=== PATIENT | male | born 1940 | race Caucasian/White ===

== ENCOUNTER 2019-10-11 05:57 | Outpatient (RCR) | payer MEDICARE, OTHER, SELFPAY | END 2019-10-24 00:01 | LOC: ONCRAD 05:57 | PROVIDERS: Family Provider Internal Medicine; PCP Radiology Radiation Oncology; Visit Provider Radiology Radiation Oncology | DX: Z08 Encounter for follow-up examination after completed treatment for malignant neoplasm (principal); C34.12 Malignant neoplasm of upper lobe, left bronchus or lung; F40.240 Claustrophobia; J43.9 Emphysema, unspecified; I25.10 Atherosclerotic heart disease of native coronary artery without angina pectoris; Q61.02 Congenital multiple renal cysts; N20.0 Calculus of kidney; N40.0 Benign prostatic hyperplasia without lower urinary tract symptoms; K57.30 Diverticulosis of large intestine without perforation or abscess without bleeding; K40.20 Bilateral inguinal hernia, without obstruction or gangrene, not specified as recurrent; Z79.82 Long term (current) use of aspirin; Z92.3 Personal history of irradiation | CPT/HCPCS: 71260; 74177; 82565; 84520; 99215; Q9967 ==

== ENCOUNTER 2019-11-30 12:27 | Outpatient (CLI) | payer MEDICARE, OTHER, SELFPAY ==
--- NOTE | 2019-11-30 12:44 | CT_ITS ---
WS: [id number] CT scan of the abdomen and pelvis with Oral and without IV contrast. Additional two-dimensional coron al and sagittal reconstruction was performed. 11/30/2019 Clinical Data: H/O DIVERTICULITIS Comparison: CT abdomen and pelvis, 10/09/2019. DLP: 1056.[address] scans at [facility] use at least one of these dose optimization techniques: automat ed exposure control; mA and/or kV adjustment per patient size (includes targeted exams where dose is matched to clinical indication); or iterative reconstruction. Findings: The lower lungs show no nodules, masses or effusions. There is a moderate hiatal hernia. The liver, adrenal glands and pancreas are normal. The gallbladder has several small stones within. There is a cyst at the anterior aspect of the spleen unchanged. The kidneys show bilateral cysts and nonobstructing calculi. The largest right renal calculus is 0.77 cm centimeters and the left is 0.94 centimeters. The abdominal aorta is normal in size with calcification in the wall.. No appendicitis or diverticulitis is seen. There are numerous diverticula of the descending and sigmo id colons. Oral contrast is in the stomach and small bowel and there is no bowel dilatation. No absce ss, adenopathy, ascites, mass, obstruction or free air is seen. There is a small fluid collection ant erior to the rectum but there is no air within.. There is a slight decrease in size There are bilater al fat-containing inguinal hernias. The prostate is enlarged with central calcification. The bladder is unremarkable. The lumbar vertebral bodies show an old compression fracture of L3 and d egenerative disc narrowing at L5-S1.. CT/CT abdomen pelvis wo con [id number] Impression: 1. Cholelithiasis, splenic cyst, multiple renal calculi and renal cysts. 2. Small anterior rectal fluid collection diminished slightly in size. 3. No change in bilateral fat-containing inguinal hernias. 4. No essential change from previous CT abdomen and pelvis.
[2019-11-30] MEDS: iohexol 300 mg/mL 50 mL Btl PO (14:02)
== END 2019-11-30 12:28 | disposition home or self-care (01) ==
LOC: RADWPI 12:34
PROVIDERS: Family Provider Internal Medicine; PCP Internal Medicine; Referring Provider Radiology Radiation Oncology; Visit Provider Surgery
DX: K57.92 Diverticulitis of intestine, part unspecified, without perforation or abscess without bleeding (principal); K80.20 Calculus of gallbladder without cholecystitis without obstruction; D73.4 Cyst of spleen; N20.0 Calculus of kidney; N28.1 Cyst of kidney, acquired
CPT/HCPCS: 74176

== ENCOUNTER 2019-12-25 07:59 | Day surgery (SDC) | payer MEDICARE, OTHER, SELFPAY ==
[2019-12-22 10:15] VITALS: BMI 22.4
--- NOTE | 2019-12-22 10:47 | ANES.PREANE2 ---
Pre-Anesthetic Assessment Pre-Anesthetic Assessment: Height/Weight: Height 1.78 m Weight 70.76 kg Preop Diagnosis: Right inguinal hernia Proposed Procedure: Operation Date: 12/25/19 08:00 Proposed Procedures p Laparoscopic Poss Open Inguinal Hernia Repair 73792 K40.90(Right) - Dmitry Maciel MD Social: Packs per day: 1.5 Pack years: 100 Exam: Pre-Anes Outpt Exam: alert, oriented x 3, clear to auscultation bilaterally and regular rate & rhythm Airway: Submandibular: WNL Cervical ROM: Other MP: 2 Dentition: False Pulmonary: Pulmonary: COPD CV/HEM: CV/HEM: Afib Comments: stress test '00 negative 2 blocks/2FOS without angina/mild BACON Metabolic: Metabolic: DM Comments: rx'd 1y, 100-170 Anesthetic Plan: ASA status: 3 Anesthesia: General PFSH Anesthesia PFSH: Social History (Updated 12/22/19 @ 10:02 by Nallely Fox) Smoking and tobacco status: current every day smoker Data Anesthesia Cardiac Studies: No Data to Display
[2019-12-25] VITALS (12 sets, daily range): BP systolic 117–162; BP diastolic 67–98; PULSE 72–112; RESP 18–28; TEMP 36.4–36.9; O2SAT 93–98
[2019-12-25] MEDS: sodium chloride 0.9% 1,000 ML 30 ML IV (08:47)
[2019-12-25 08:55] LABS: Glucose Point of Care 138 mg/dL (70-110)
--- NOTE | 2019-12-25 08:57 | P.ANESUD_ITS ---
Pre-Anesthetic Update Pre-Anesthetic Assessment: Date of Surgery/Procedure: 12/25/19 Preop Danielle gnosis: Right inguinal hernia Proposed Procedure: Operation Date: 12/25/19 09:30 Proposed Procedures p Laparoscopic Poss Open Inguinal Hernia Repair 62240 K40.90(Right) - Dmitry Maciel MD Any changes to Pre-Anesthetic Assessment?: No Last Intake: Intake Last Liquid Date 12/25/19 Last Liquid Time 07:00 Last Solid Date 12/24/19 Last Solid Time 22:00 Labs Last 48hrs: Laboratory Results - last 48 hr 12/25/19 08:52 POC Glucose 138 Vitals: Temperature 98.4 F 12/25/19 08:13 Temperature Source Temporal Artery S can 12/25/19 08:13 Pulse Rate 86 12/25/19 08:13 Pulse Rhythm 12/25/19 08:15 Pulse Strength 3+ Normal 12/25/19 08:15 Respiratory Rate 18 12/25/19 08:13 Blood Pressure 126/79 12/25/19 08:13 Blood Pressure Kanika n 94 12/25/19 08:13 Pulse Oximetry 95 12/25/19 08:13 Oxygen Delivery Me thod 12/25/19 08:15 Exam: Pre-Anes Outpt Exam: alert, oriented x 3, clear to auscultation syed aterally and regular rate & rhythm Other Pertinent Information: Other Pertinent Information: Took prednisone and inhaler this morning, took metoprolol last night Cardiac Studies: No Data to Display
--- NOTE | 2019-12-25 09:00 | ECG_ITS ---
Measurements Intervals [place] Rate: 74 P: WA: 0 QRS: -88 QRSD: 161 T: -10 QT: 417 QTc: 465 ATRIAL FIBRILLATION RIGHT BUNDLE BRANCH BLOCK [120+ ms QRS DURATION, UPRIGHT V1, 40+ ms S IN I/aVL/V4/V5/V6] POSSIBLE ANTERIOR MYOCARDIAL INFARCTION [30 ms Q WAVE IN V3/V4, OR R < 0.2 mV IN V4], OF INDETERMINATE AGE INFERIOR MYOCARDIAL INFARCTION [40+ ms Q WAVE AND/OR ST/T ABNORMALITY IN II/aVF], PROBABLY OLD Compared to ECG 09/18/2019 13:49:05 Ventricular premature complex(es) no longer present Aberrant conduction of supraventricular beat(s) no longer present Myocardial infarct finding still present Electronically Signed On 12-25-2019 20:23:13 DISABILITIES CAREGIVER by Samara White M.D. [id number]
[2019-12-25 09:12] LABS: Basophils % 0.6 %; Eosinophils # 0.2 10^3/uL (0.0-0.8); Eosinophils % 2.4 %; Hematocrit 48.6 % (42.0-52.0); Hemoglobin 16.4 g/dL (11.7-16.6); Lymphocytes % 16.2 %; Mean Corpuscular HGB Conc 33.7 g/dL (30.0-36.0); Mean Corpuscular Hemoglobin 31.2 pg (28.0-34.0); Mean Corpuscular Volume 92.6 fL (80-94); Mean Platelet Volume 10.7 fL (7.4-10.4); Monocytes # 0.7 10^3/uL (0.2-0.9); Monocytes % 11.1 %; Neutrophils # 4.3 10^3/uL (1.8-7.7); Neutrophils % 69.4 %; Nucleated Red Blood Cells % 0 %; Platelet Count 149 10^3/cmm (130-400); Red Blood Count 5.25 10^6/uL (4.1-5.3); Red Cell Distribution Width 13.4 % (12.1-15.1); White Blood Count 6.2 10^3/uL (4.0-10.0)
[2019-12-25 09:31] LABS: Anion Gap 16.9 (5-19); Blood Urea Nitrogen 18 mg/dL (8-23); Carbon Dioxide 22 mmol/L (22-29); Chloride 101 mmol/L (98-107); Glucose 161 mg/dL (65-115); Osmolality Calculated 282 mOsm/kg (285-295); Potassium 3.9 mmol/L (3.5-5.1); Sodium 136 mmol/L (136-145)
--- NOTE | 2019-12-25 09:46 | W.PM.OPSUD ---
Surgery/Procedure H&P Update DATE OF PROCEDURE: December 25, 2019 DATE H&P PERFORMED: 12/15/19 H&P UPDATE INFORMATION: I have reviewed H&P completed within last 30 days, I have examined patient prior to procedure and No changes to prior documentation PREOP DIAGNOSIS: Right inguinal hernia PLANNED PROCEDURE: Operation Date: 12/25/19 09:30 Proposed Procedures p Laparoscopic Poss Open Inguinal Hernia Repair 19982 K40.90(Right) - Dmitry Maciel MD
[2019-12-25] MEDS: ipratropium 0.5 mg/2.5 mL Neb INHALATION (10:08)
--- NOTE | 2019-12-25 11:07 | SUR.OPER ---
1050 - Pt's notified of surgery start.
--- NOTE | 2019-12-25 11:38 | PM.OP ---
Operative Report Date of procedure: December 25, 2019 Pre-op Diagnosis: Right inguinal hernia Post-op Diagnosis: Reducible right inguinal hernia Lipoma of the spermatic cord Procedure Done: Laparoscopic total extraperitoneal repair of right inguinal hernia with surgimax 3D mesh Excision of lipoma of the spermatic cord Pathology: none sent Surgeon: Dmitry Maciel Anesthesia: General Estimated blood loss (mL): 20 Condition: stable Disposition: PACU Procedure: The patient was taken to the operating room. After IV antibiotic was administered, the abdomen was prepped and draped in a sterile manner. Using a 15 blade, a 1.0 cm transverse incision was made infraumbilically on the right side. Subcutaneous tissue was divided using electrocautery and the anterior rectus sheath divided using an 11 blade. The rectus muscle was retracted laterally and the extraperitoneal space identified. A 11 mm port was placed and 12 mm of pneumoperitoneum was created. A 10 mm 30? scope was introduced and the retrorectus space was opened using the camera up to the pubic symphysis and 5 mm ports were placed in the midline, one 2-fingerbreadths above the pubic symphysis and the other midway between these two ports under direct visualization. Blunt dissection was carried out to open up the tissue in the midline and to the pubic symphysis, which was identified. The dissection was then carried laterally where the iliopubic tract was identified. There was no femoral, obturator or direct hernia noted. The inferior epigastric artery was identified and dissection was carried posterior to it and laterally, the space was opened up to the level of the umbilicus superior to the anterior superior iliac spine. I then proceeded to dissect out the spermatic cord and the large lipoma of the spermatic cord was reduced and excised and subsequently the indirect hernial sac was reduced . 15 x 10cm surgimax 3D mesh was rolled and introduced through the 10 mm port and then rolled laterally and apposed well against the abdominal wall to cover the myopectineal orifice completely. 10 Cc of 0.5% Marcaine was infiltrated into the preperitoneal space. The extraperitoneal space was desufflated under direct visualization to ensure no slippage of hernial sac under the mesh. All ports were removed, the anterior rectus fascia at the infraumbilical port closed using figure of eight 0 Vicryl sutures, subcutaneous tissue approximated using 3-0 Vicryl sutures and skin at all three port sites were closed using running subcuticular 4-0 Monocryl sutures and Dermabond. 10 mL of 0.5% Marcaine was infiltrated at the port sites. The patient was stable throughout the procedure.
--- NOTE | 2019-12-25 12:15 | SUR.PHASEI ---
1201 PT TO PACU SLEEPY BUT SITTING UP IN BED 3 SITES TO ABD SCROTAL SUPPORT AND FLUFFS, PT RESTLESS PT PLACEDON BIPAP AT 21% PT ALERT AND COOPERATIVE, BUT DOZES OFF AT TIMES 1213 PT ON 3LNC NOW PT WANTED MASK OFF, RT AT BEDSIDE, PT ALERT VSS PT DENIES PAIN AND NAUSEA, VSS 1218 PT TAKING ICE CHIPS SATS 98% ON 3LNC
[2019-12-25 12:27] LABS: Glucose Point of Care 182 mg/dL (70-110)
== END 2019-12-25 14:10 | disposition home or self-care (01) ==
PROVIDERS: Family Provider Internal Medicine; PCP Internal Medicine; Visit Provider Surgery
PROC: (CPT 49650; principal; 2019-12-25 09:30)
DX: K40.90 Unilateral inguinal hernia, without obstruction or gangrene, not specified as recurrent (principal); J44.9 Chronic obstructive pulmonary disease, unspecified; D17.6 Benign lipomatous neoplasm of spermatic cord; F17.210 Nicotine dependence, cigarettes, uncomplicated; I48.91 Unspecified atrial fibrillation; E11.9 Type 2 diabetes mellitus without complications; Z79.82 Long term (current) use of aspirin; Z79.52 Long term (current) use of systemic steroids
CPT/HCPCS: 49650; 12345; 36415; 36416; 80048; 82962; 85025; 93005; 94640; 94660; C1781; J0131; J0690; J1100; J2001; J2405; J2704; J2710; J3010; J3490; J7030; J7611; J7644

== ENCOUNTER 2020-01-24 10:55 | Outpatient (CLI) | payer MEDICARE, OTHER, SELFPAY ==
--- NOTE | 2020-01-24 11:07 | US_ITS ---
WS: [id number] SCROTAL ULTRASOUND EXAMINATION CLINICAL INFORMATION: lump on spermatic cord COMPARISON: None. FINDINGS: TESTES Normal in size and echotexture, without focal lesion. Color Doppler: Normal color Doppler flow pattern. Right testes size: 2.9 cm x 2.1 cm x 1.8 cm. Left testes size: 2.9 cm x 2.0 cm x 1.8 cm. EPIDIDYMIDES Normal in size and echotexture, without focal lesion. Bilateral scrotal microlithiasis. A few tiny an echoic cystic lesions in both testicles likely benign. Small right epididymal cyst/spermatocele measu ring 5 mm. Small bilateral hydroceles. Color Doppler: Normal color Doppler flow pattern. HYDROCELE Small bilateral VARICOCELE None. OTHER FINDINGS In the area of palpable concern, right groin, are a few tubular structures which may represent vessel s or spermatic cord. This is medial to the inguinal crease and inguinal hernia repair and just latera l to the penis. US/US scrotum [id number] IMPRESSION: 1. Normal testicular echotexture and vascularity bilaterally. 2. A few tiny anechoic cystic appearing lesions in both testicles similar in a ppearance to 2015 likely benign cysts. 3. 5 mm right epididymal cyst/spermatocele. 4. In the area of palpable concern, right groin, are a few tubular structures which may represent vessels or spermatic cord. This is medial to the inguinal c rease and inguinal hernia repair.
== END 2020-01-24 10:56 | disposition home or self-care (01) ==
LOC: RADWPI 11:00
PROVIDERS: Family Provider Internal Medicine; PCP Internal Medicine; Visit Provider Surgery
DX: N50.89 Other specified disorders of the male genital organs (principal); N43.41 Spermatocele of epididymis, single
CPT/HCPCS: 76870

== ENCOUNTER 2020-02-29 09:12 | Outpatient (CLI) | payer MEDICARE, OTHER, SELFPAY ==
--- NOTE | 2020-02-29 09:29 | CT_ITS ---
WS: [id number] CT CHEST WITHOUT INTRAVENOUS CONTRAST HISTORY: LEFT LUNG MASS TECHNIQUE: Contiguous 5 mm axial imaging performed on the thorax. Coronal and sagittal reformats are submitted. All CT scans at [facility] use at least one of these dose optimization techniq ues: automated exposure control; mA and/or kV adjustment per patient size (includes targeted exams wh ere dose is matched to clinical indication); or iterative reconstruction. CONTRAST: None DLP: 858.85 mGycm COMPARISON: 10/09/2019 and 07/14/2019 and 04/19/2019 Lungs and central airway: Hyperinflated lungs from emphysema. Ovoid solid nodule in the LEFT upper lo be abuts the major fissure. This nodule has been previous the described on multiple prior studies and continues to show slight decrease in size. Solid mass measures 2.3 x 1.6 x 2.9 cm. There is adjacent interstitial thickening and stranding which may be postradiation induced lung disease. 2 mm nodule s uperior segment LEFT lower lobe. Pleura: No pleural effusions. Heart and pericardium: Moderately enlarged cardiac chambers. No pericardial effusion. Mediastinum and karthik: No mediastinum or hilar adenopathy. Vessels: Mild atherosclerosis aorta. No aneurysm. Pulmonary artery size is equal to the aorta. Scatte red mild atherosclerosis [place] coronary arteries. Chest wall and lower neck: No soft tissue masses. Upper abdomen: Visualized unenhanced liver is negative. Mild stranding around the upper poles of each kidney. Cortical thinning of the upper pole LEFT kidney with a few small calcifications. There is an exophytic mass from the LEFT kidney which has been seen on multiple prior examinations and stable in size. Transverse colon diverticular disease. No adrenal mass. Osseous structures: Moderate degenerative changes in the thoracic spine. No osteoblastic or osteolyti c lesions. CT/CT chest wo con [id number] IMPRESSION: 1. Continued slow decrease in size LEFT upper lobe pulmonary mass now measurin g 2.3 x 1.6 x 2.9 cm. Compared to 2.7 x 3.4 x 3.3 cm on 10/09/2019. 2. No central adenopathy. 3. LEFT upper lobe interstitial stranding is probably radiation induced lung d isease. 4. Chronic emphysema and atherosclerosis aorta. 5. Cardiomegaly.
== END 2020-02-29 09:13 | disposition home or self-care (01) ==
LOC: RADWPI 09:17
PROVIDERS: Family Provider Internal Medicine; PCP Internal Medicine; Visit Provider Internal Medicine
DX: R91.8 Other nonspecific abnormal finding of lung field (principal); J43.8 Other emphysema; I70.0 Atherosclerosis of aorta; I51.7 Cardiomegaly
CPT/HCPCS: 71250

== ENCOUNTER 2020-04-10 13:08 | Outpatient (CLI) | payer MEDICARE, OTHER, SELFPAY ==
--- NOTE | 2020-04-10 14:09 | ONCRAD EPV_ITS ---
Radiation Oncology Established Patient Visit Patient: Shirley MR#: [id number] : 1940> Age: 79> Sex: Male> Dictated by: Dr. Chalo Nicole Date of Service: 04/10/2020 Referring Physician(s) : Fanta Ho M.D. Diagnosis: C34.12 - Malignant neoplasm of upper lobe, left bronchus or lung, Diagnosed 05/12/2019 (Active) Stage X, T2a, NX, MX R91.1 - Solitary pulmonary nodule, Diagnosed 04/04/2019 (Active) Radiotherapy to Date: Course: LT LungSBRT, Treatment Site: LT Lung SBRT, Ref. ID: [id number], Energy: 15X/6X, Dose/Fx (cGy): 1,000, #Fx: 5 / 5, Dose Correction (cGy): 0, Total Dose (cGy): 5,000, Start Date: 05/24/2019, End Date: 06/02/2019, Elapsed Days: 9 Chief Complaint / History of Present Illness: Mr. Lloyd is seen 10 months after SBRT. He is doing well. His chronic symptoms of COPD are stable. He denies any new cough, hemoptysis, or purulent sputum production. He has no chest wall pain. He states that he tolerated SBRT extremely well and had no side effects of significance. Current Medications: Aspirin Adult, b-6, cetyl Myristoleate, co Q-10, furosemide, ibuprofen, ipratropium-Albuterol, metoprolol Tartrate, montelukast Sodium, mucinex Maximum Strength, potassium Chloride ER, predniSONE, preserVision AREDS 2, proAir HFA, spiriva Respimat, symbicort, testosterone Cypionate, triamcinolone Acetonide, vitamin B-12, vitamin D3, zolpidem Tartrate ER. Allergies: Niacin and Flagyl. Current Complaints / Review of Systems: . Vital Signs: Performed on 04/10/2020 1:40 PM BMI - 22.79 kg/m2, Height - 71.00 in, Weight - 163.4 lbs, Temperature - 98.2 f, Pulse - 68, Respiration - 18, O2 Sat - 98 %, Pain - 0 and BP - 114/ 74 mm(hg). Physical Exam: General: Alert and oriented x 3. No acute distress. NECK: Supple without supraclavicular or jugular lymphadenopathy. LUNGS: Clear to auscultation bilaterally without rales, rhonchi or wheeze. HEART: Regular rate and rhythm, normal S1 and S2 without murmur, gallop or rub. MUSCULOSKELETAL: No tenderness or percussion pain over the axial skeleton, scapulae or pelvis. ABDOMEN: Soft, nontender, nondistended without masses or organomegaly. Bowell sounds are present Performance Status: KPS: 70 Lab: None pending. Pathology: Primary, c34.12 - malignant neoplasm of upper lobe, left bronchus or lung, Diagnosed 05/12/2019 (active) stage x, t2a, nx, mx and Primary, r91.1 - solitary pulmonary nodule, Diagnosed 04/04/2019 (active). Imaging: CT 02/29/20 Reveals the treated mass to continue to slowly shrink. It now measures 1.6 x 2.9 x 2.3 cm. Originally the mass measured approximately 4 x 3.7 x 3.5 cm. No other areas of concern identified. Impression: Doing well with a good result from SBRT. We will get a CT in early June and he will return for follow-up in mid June. Signed by: 04/10/2020 2:08:42 PM <<Signature on File>> Time spent with patient: CPT Code: CPT Code:
== END 2020-04-10 13:09 | disposition home or self-care (01) ==
LOC: ONCMED 13:16
PROVIDERS: PCP Internal Medicine; Visit Provider Specialist
DX: C34.12 Malignant neoplasm of upper lobe, left bronchus or lung (principal); Z92.3 Personal history of irradiation; J44.9 Chronic obstructive pulmonary disease, unspecified; Z79.82 Long term (current) use of aspirin
CPT/HCPCS: 99214

== ENCOUNTER 2020-07-11 11:05 | Outpatient (CLI) | payer MEDICARE, OTHER, SELFPAY ==
--- NOTE | 2020-07-11 | CT_ITS ---
WS: [id number] CT CHEST TECHNIQUE: Contrast enhanced CT of the chest with coronal and sagittal reformatted images. CLINICAL INFORMATION: LUNG CANCER COMPARISON: CT chest February 29, 2020 DLP: 893.[address] scans at [facility] use at least one of these dose optimization techniques: automat ed exposure control; mA and/or kV adjustment per patient size (includes targeted exams where dose is matched to clinical indication); or iterative reconstruction. FINDINGS: Right main proximal pulmonary artery is normal. Large filling defect in the left proximal main pulmon jesica artery consistent with pulmonary embolus extending into the proximal segmental and subsegmental p ulmonary arteries left upper and left lower lobe. Embolus measures 5.3 x 2.5 CM with approximately 70 % narrowing of the left main pulmonary artery. Additional smaller emboli in the right upper and lower lobe consistent with pulmonary embolus. Advanced chronic emphysematous changes. Left upper lobe suprahilar mass measuring 1.7 x 2.4 cm slight ly decreased in size compared to previous but not significantly changed. Surrounding interstitial thi ckening and infiltrate is similar in appearance likely radiation pneumonitis. Patchy focal wedge-shaped infiltrate within the right lower lobe along the fissure measuring 2.5 CM l ikely pulmonary infarct. Subsegmental atelectasis right lower lobe. No other suspicious pulmonary par enchymal opacities. No axillary lymphadenopathy. Adrenal glands are normal. Partially visualized bilateral renal cysts. M ild diffuse fatty infiltration the liver partially visualized. Partially visualized splenic cysts or hemangiomas largest measuring 3.5 CM. Mild thoracic kyphosis. CT/CT chest w con* [id number] IMPRESSION: 1. Large pulmonary embolus in the left main pulmonary artery measuring 2.5 x 5 .3 cm extending into the proximal segmental and subsegmental pulmonary arteries left upper and left lower lobes. This results in approximately 70% narrowing o f the left main pulmonary artery. 2. Additional smaller pulmonary emboli involving the right upper and right low er lobes. Recommend interval follow-up with CTA chest pulmonary embolus protoco l. 3. Small wedge-shaped infiltrate in right lower lobe laterally likely small pu lmonary infarct measuring 1.8 x 2.3 cm. 4. Left suprahilar mass slightly decreased in size compared to previous today measuring 1.6 x 2.4 CM. Surrounding patchy infiltrates likely radiation pneumon itis. 5. Subsegmental atelectasis in the lung bases. 6. No mediastinal or hilar lymphadenopathy. Attempted Christoph Horowitz MD at 07/11/2020 12:45 PM. Not currently available jimmy hammer Discussed with Dr. Murray at 07/11/2020 12:55 PM
[2020-07-11 12:19] LABS: Blood Urea Nitrogen 18 mg/dL (8-23)
[2020-07-11] MEDS: iodixanol 320 mg/mL 100mL Btl IV (12:29)
== END 2020-07-11 11:06 | disposition home or self-care (01) ==
LOC: RADWPI 11:08
PROVIDERS: Family Provider Internal Medicine; PCP Internal Medicine; Visit Provider Radiology Radiation Oncology
DX: C34.12 Malignant neoplasm of upper lobe, left bronchus or lung (principal); J98.11 Atelectasis; R91.8 Other nonspecific abnormal finding of lung field; I26.99 Other pulmonary embolism without acute cor pulmonale
CPT/HCPCS: 71260; 82565; 84520; Q9967

== ENCOUNTER 2020-07-11 13:23 | Inpatient (IN) | payer MEDICARE, OTHER, SELFPAY ==
[2020-07-11] VITALS (8 sets, daily range): BP systolic 117–131; BP diastolic 78–84; PULSE 62–94; RESP 14–20; TEMP 36.4–37.1; O2SAT 94–131; BMI 24.5
--- NOTE | 2020-07-11 13:35 | XRR_ITS ---
PROCEDURE INFORMATION: Exam: XR Chest, 1 View Exam date and time: 07/11/2020 2:15 PM Age: 80 years old Clinical indication: Patient HX: Shortness of breath since Wednesday, history of lung cancer; Additional info: SOB, pe TECHNIQUE: Imaging protocol: XR of the chest Views: 1 view. COMPARISON: CT chest w con* [id number] 07/11/2020 12:11 PM FINDINGS: Lungs: Prominent bronchovascular markings, and interstitial densities seen in the left perihilar region of similar to prior examination. There is bilateral lower lobe atelectasis present. The lungs are otherwise Pleural space: Unremarkable. No pleural effusion. No pneumothorax. Heart/Mediastinum: Unremarkable. No cardiomegaly. Bones/joints: Unremarkable. XR/XR chest 1V portable [id number] IMPRESSION: 1. No acute findings. 2. Stable left perihilar interstitial densities
--- NOTE | 2020-07-11 13:35 | ECG_ITS ---
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 Measurements Intervals [place] Rate: 81 P: IA: -1 QRS: 270 QRSD: 154 T: 1 QT: 401 QTc: 468 Interpretive Statements ATRIAL FIBRILLATION WITH ABERRANT CONDUCTION OR VENTRICULAR PREMATURE COMPLEXES RIGHT AXIS DEVIATION [QRS AXIS > 100] RIGHT BUNDLE BRANCH BLOCK [120+ ms QRS DURATION, UPRIGHT V1, 40+ ms S IN I/aVL/V4/V5/V6] ANTERIOR MYOCARDIAL INFARCTION , PROBABLY RECENT [40+ ms Q WAVE AND/OR ST/T ABNORMALITY IN V3/V4] INFERIOR MYOCARDIAL INFARCTION , OF INDETERMINATE AGE [40+ ms Q WAVE AND/OR ST/T ABNORMALITY IN II/aVF] ACUTE ND Compared to ECG 12/25/2019 09:42:02 Ventricular premature complex(es) now present Aberrant conduction of supraventricular beat(s) now present Right-axis deviation now present Myocardial infarct finding still present Electronically Signed On 07-11-2020 19:41:34 CDT by Samara White M.D. [id number]
[2020-07-11 14:06] LABS: Basophils # 0.1 10^3/uL (0.0-0.1); Basophils % 0.6 %; Eosinophils # 0.1 10^3/uL (0.0-0.8); Eosinophils % 0.7 %; Hematocrit 55.8 % (42.0-52.0); Hemoglobin 18.1 g/dL (11.7-16.6); Lymphocytes # 0.8 10^3/uL (0.8-4.8); Mean Corpuscular HGB Conc 32.4 g/dL (30.0-36.0); Mean Corpuscular Volume 98.8 fL (80-94); Mean Platelet Volume 10.5 fL (7.4-10.4); Monocytes # 0.9 10^3/uL (0.2-0.9); Monocytes % 7.8 %; Neutrophils # 9.22 10^3/uL (1.8-7.7); Neutrophils % 83.2 %; Nucleated Red Blood Cells % 0 %; Platelet Count 183 10^3/cmm (130-400); Red Blood Count 5.65 10^6/uL (4.1-5.3); Red Cell Distribution Width 14.2 % (12.1-15.1); White Blood Count 11.1 10^3/uL (4.0-10.0)
[2020-07-11 14:18] LABS: INR 1.02 (0.8-1.2)
--- NOTE | 2020-07-11 14:25 | W.ED.SOB ---
HPI - SOB/Dyspnea General: Chief Complaint: Shortness of Breath/Dyspnea Stated Complaint: SOB Time Seen by Provider: 07/11/20 13:33 History of Present Illness: HPI Narrative: This patient is an 80-year-old male who presents today with a known pulmonary embolism. He has a history of a lung mass and has been treated with radiation. He went for a routine CT scan today as a follow-up to see how the mass is doing. The mass is getting smaller but unfortunately was noted to have a very large clot in the main pulmonary artery. He also has some pulmonary infarct. He said Wednesday he started having severe shortness of breath although he has not had any chest pain. He saw his nurse practitioner physicians assistant on Wednesday and they thought he might have pneumonia so put him on doxycycline. He has continued to require oxygen which normally he does not. He is feeling quite weak and tired. He is normally pretty active. He has a history of A. fib. He is not currently on any blood thinners other than aspirin. MD elicited complaint: shortness of breath Pertinent past history: COPD and diabetes Onset (ago): day(s) (3) Timing: constant Severity: severe Exacerbating factors: lying flat, exertion, movement and coughing Relieving factors: oxygen, rest and upright position Known history of: other (Lung mass) Associated symptoms: Deny abdominal pain, chest pain, fever(s), nausea or vomiting Treatment prior to arrival: oxygen Review of Systems General: Reports: 10 or more systems reviewed and unremarkable except in HPI and below Const: Reports: fatigue and malaise; Denies: fever(s) or chills Eyes: Denies: change in vision ENMT: Denies: odynophagia Card: Denies: chest pain or swelling of feet/ankles Resp: Reports: dyspnea; Denies: productive cough or non-productive cough GI: Denies: abdominal pain, nausea or vomiting : Denies: flank pain Musc: Denies: neck pain or back pain Skin/Breast: Denies: rash Neuro: Denies: headache(s), numbness in extremities or weakness in extremities Steve/Lymph: Denies: easy bruising or easy bleeding PFS ED PFSH: Medical History (Updated 07/11/20 @ 15:34 by Kevin Thomas MD) Atrial fibrillation Cholelithiasis Chronic kidney disease, stage III (moderate) COPD (chronic obstructive pulmonary disease) Diabetes History of diverticulitis Lung tumor Non-small cell lung cancer Surgical History H/O ventral hernia repair History of cataract extraction History of umbilical hernia repair S/P bronchoscopy S/P tonsillectomy and adenoidectomy Status post right inguinal hernia repair 12/25/2019: Laparoscopic Status post tonsillectomy Family History Mother Liver failure Father Liver failure Stroke Denies family history of Anesthesia complication Bleeding disorder Social History (Updated 07/11/20 @ 15:31 by Kevin Thomas MD) Smoking and tobacco status: current every day smoker Alcohol intake: current Alcohol intake frequency: holidays/special occasions only Physical Exam Const: COMMON NORMALS: no acute distress, patient oriented x3, no limitations and alert GENERAL APPEARANCE: cooperative and comfortable HENMT: HEAD & SCALP: normal to inspection FACE & SINUS: normal facial exam Eye: GENERAL EYE: appearance normal, both eyes and all related structures Neck/C-Spine: COMMON NORMALS: supple, no meningeal signs and no JVD Chest: COMMONS NORMALS: normal inspection of the chest Resp: COMMON NORMALS: normal respiratory effort and No use of accessory muscles AUSCULTATION: rhonchi lower bilaterally Cardio: COMMON NORMALS: no JVD, regular rate, regular rhythm and No murmurs present (Cardio) RATE: regular rate RHYTHM: regular rhythm GI: COMMON NORMALS: Normal to inspection, nondistended, normoactive bowel sounds present, Soft to palpation and non-tender INSPECTION: Yes normal to inspection AUSCULTATION: Yes normoactive bowel sounds PALPATION: Yes Soft to palpation Back/Pelvis: COMMON NORMALS: thoracic and lumbar spine normal to inspection Extremity: COMMON NORMALS: normal to inspection Neuro: COMMON NORMALS: patient oriented x3, moves all extremities, no focal motor deficits and no sensory deficits noted SENSORIUM/ORIENTATION: Yes alert MENINGEAL SIGNS: Yes no meningeal signs Psych: COMMON NORMALS: mental status grossly normal, cooperative and normal affect Skin: COMMON NORMALS: no rashes or lesions noted and turgor normal GENERAL SKIN EXAM: no rashes or lesions noted and turgor normal Course ED course: This patient was sent over to the ER after an outpatient CT showed a large pulmonary embolism. He is symptomatic with that, requiring oxygen. He is having severe shortness of breath starting Wednesday. He is not currently on any blood thinners other than aspirin. He does have a history of A. fib. Consulted with the hospitalist for admission. Initially the patient said he did not want to stay because his would not build to stay with him. He did agree to stay in the end. Vital Signs: Vital signs: Vital Signs Temperature 97.5 F L 07/11/20 23:48 Pulse Rate 75 07/11/20 23:48 Respiratory Rate 16 07/11/20 23:48 Blood Pressure 117/79 07/11/20 23:48 Pulse Oximetry 95 07/11/20 23:48 MDM - SOB/Dyspnea Lab Data: Labs: Lab Results 07/11/20 07/11/20 07/11/20 Range/Units 13:58 13:58 13:58 WBC 11.1 H (4.0-10.0) 10^3/ uL RBC 5.65 H (4.1-5.3) 10^6/u L Hgb 18.1 H (11.7-16.6) g/dL Hct 55.8 H (42.0-52.0) % MCV 98.8 H (80-94) fL MCH 32.0 (28.0-34.0) pg MCHC 32.4 (30.0-36.0) g/dL RDW 14.2 (12.1-15.1) % Plt Count 183 (130-400) 10^3/c mm MPV 10.5 H (7.4-10.4) fL Neut % (Auto) 83.2 % Lymph % (Auto) 7.0 % [place] % (Auto) 7.8 % Eos % (Auto) 0.7 % Baso % (Auto) 0.6 % Neut # (Auto) 9.22 H (1.8-7.7) 10^3/u L Lymph # (Auto) 0.8 (0.8-4.8) 10^3/u L [place] # (Auto) 0.9 (0.2-0.9) 10^3/u L Eos # (Auto) 0.1 (0.0-0.8) 10^3/u L Baso # (Auto) 0.1 (0.0-0.1) 10^3/u L Nucleated RBC % (a uto) 0 % Nucleated RBCs # 0.0 /100WBC PT 13.70 (12.1-14.9) SECO NDS INR 1.02 (0.8-1.2) Sodium 135 L (136-145) mmol/L Potassium 4.3 (3.5-5.1) mmol/L Chloride 98 (98-107) mmol/L Carbon Dioxide 25 (22-29) mmol/L Anion Gap 16.3 (5-19) BUN 14 (8-23) mg/dL Creatinine 1.8 H (0.7-1.2) mg/dL GFR Calculation Not Reportable Glucose 134 H (65-115) mg/dL Calculated Osmolal ity 282 L (285-295) mOsm/k g Lactic Acid (0.5-2.2) mmol/L Calcium 9.7 (8.5-10.5) mg/dL Total Bilirubin 1.1 (0.15-1.2) mg/dL AST 21 (0-40) U/L ALT 24 (0-41) U/L Alkaline Phosphata se 82 (40-130) IU/L Troponin T Baselin e (0-15) ng/L NT-Pro-B Natriuret Pep 2526 H (0-450) pg/mL Total Protein 6.9 (6.6-8.7) g/dL Albumin 3.7 (3.5-5.2) g/dL Globulin 3.2 (1.3-4.6) g/dL 07/11/20 07/11/20 Range/Units 13:58 13:58 WBC (4.0-10.0) 10^3/ uL RBC (4.1-5.3) 10^6/u L Hgb (11.7-16.6) g/dL Hct (42.0-52.0) % MCV (80-94) fL MCH (28.0-34.0) pg MCHC (30.0-36.0) g/dL RDW (12.1-15.1) % Plt Count (130-400) 10^3/c mm MPV (7.4-10.4) fL Neut % (Auto) % Lymph % (Auto) % [place] % (Auto) % Eos % (Auto) % Baso % (Auto) % Neut # (Auto) (1.8-7.7) 10^3/u L Lymph # (Auto) (0.8-4.8) 10^3/u L [place] # (Auto) (0.2-0.9) 10^3/u L Eos # (Auto) (0.0-0.8) 10^3/u L Baso # (Auto) (0.0-0.1) 10^3/u L Nucleated RBC % (a uto) % Nucleated RBCs # /100WBC PT (12.1-14.9) SECO NDS INR (0.8-1.2) Sodium (136-145) mmol/L Potassium (3.5-5.1) mmol/L Chloride (98-107) mmol/L Carbon Dioxide (22-29) mmol/L Anion Gap (5-19) BUN (8-23) mg/dL Creatinine (0.7-1.2) mg/dL GFR Calculation Glucose (65-115) mg/dL Calculated Osmolal ity (285-295) mOsm/k g Lactic Acid 2.0 (0.5-2.2) mmol/L Calcium (8.5-10.5) mg/dL Total Bilirubin (0.15-1.2) mg/dL AST (0-40) U/L ALT (0-41) U/L Alkaline Phosphata se (40-130) IU/L Troponin T Baselin e 39 H (0-15) ng/L NT-Pro-B Natriuret Pep (0-450) pg/mL Total Protein (6.6-8.7) g/dL Albumin (3.5-5.2) g/dL Globulin (1.3-4.6) g/dL Discharge Plan Discharge Admit Provider: Kevin Thomas Discharge Date/Time: 07/11/20 16:54 Coding Level of Care Code ED Steel Turner for Chg Fwd Exam Comprehensive
[2020-07-11 14:28] LABS: Troponin(5th) Baseline 39 ng/L (0-15)
[2020-07-11 14:35] LABS: Alanine Aminotransferase 24 U/L (0-41); Albumin Level 3.7 g/dL (3.5-5.2); Alkaline Phosphatase 82 IU/L (40-130); Anion Gap 16.3 (5-19); Aspartate Amino Transferase 21 U/L (0-40); Blood Urea Nitrogen 14 mg/dL (8-23); Calcium 9.7 mg/dL (8.5-10.5); Carbon Dioxide 25 mmol/L (22-29); Chloride 98 mmol/L (98-107); Globulin 3.2 g/dL (1.3-4.6); Glucose 134 mg/dL (65-115); NT Pro B Type Natriuretic Pept 2526 pg/mL (0-450); Osmolality Calculated 282 mOsm/kg (285-295); Potassium 4.3 mmol/L (3.5-5.1); Sodium 135 mmol/L (136-145); Total Bilirubin 1.1 mg/dL (0.15-1.2); Total Protein 6.9 g/dL (6.6-8.7)
[2020-07-11] MEDS: sodium chloride 0.9% 500 ML 999 ML IV (14:43)
[2020-07-11] MEDS: nicotine 21 mg Patch 1 PATCH TRANSDERMA (15:05)
--- NOTE | 2020-07-11 15:28 | PM.HP ---
Providers/Chief Complaint Primary Care Provider: Feroz Ramos DO Chief Complaint: SOB History of Present Illness Aaron Lloyd is a 80 year old male who presents with increasing shortness of breath over the last 6 to 7 days. He reports he saw his oracle technical architect and got started on some doxycycline. He has had no fevers. He has had no hemoptysis. No chest discomfort. He got a CT scan of his chest today, for restaging of his non-small cell lung cancer, left suprahilar area and was found to have a large left pulmonary artery embolism, and smaller emboli to his right upper and right lower lobe. He denies any vomiting, diarrhea. He has not been on any anticoagulation. He reports no blood in his stool, or black or tarry stools. He has not had COVID, nor exposure to it that he knows of. He is currently using 3 L of oxygen. At home he usually uses it as needed and often does not need any at all. He reports he has chronic leg edema left greater than right. Review of Systems General: Reports: 10 or more systems reviewed and unremarkable except in HPI and below Const: Denies: fever(s) or chills Eyes: Denies: change in vision ENMT: Denies: throat pain Card: Denies: chest pain Resp: Reports: dyspnea and productive cough GI: Denies: abdominal pain : Denies: flank pain Musc: Denies: neck pain Skin/Breast: Denies: rash Psych: Denies: anxiety Endo: Denies: polyuria Steve/Lymph: Denies: easy bruising All/Imm: Denies: urticaria Medications/Allergies Home Medications Medication Instructions Recorded Confirmed Last Taken Type albuterol sulfate 90 mcg/actuation 1 - 2 puff INHALATION Q3H PRN 11/15/19 07/11/20 07/11/20 History aerosol inhaler montelukast 10 mg tablet 10 mg PO DAILY 11/15/19 07/11/20 07/10/20 History nitroglycerin 0.4 mg sublingual 0.4 mg SUBLINGUAL Q5MIN PRN tab 11/15/19 07/11/20 Unknown History tablet potassium chloride 10 mEq 20 meq PO DAILY 11/15/19 07/11/20 07/10/20 History capsule,extended release prednisone 5 mg tablet 2.5 mg PO DAILY tab 0107/11/20 07/10/20 History zolpidem 10 mg tablet 10 mg PO BEDTIME tab 11/15/19 07/11/20 12/24/19 23:00 History Lantus U-100 Insulin 5 unit SUBCUT BEDTIME 12/22/19 07/11/20 07/10/20 History Neurontin 100 mg PO TID PRN 07/11/20 07/11/20 Unknown History Robitussin Dm See Rx Instructions .ROUTE .COMPLEX 07/11/20 07/11/20 Unknown History Vitamin B-1 1 tab PO DAILY 07/11/20 07/11/20 Unknown History Vitamin B-12 1 tab PO DAILY 07/11/20 07/11/20 Unknown History Vitamin B-6 1 tab PO DAILY 07/11/20 07/11/20 Unknown History Vitamin D3 1 tab PO DAILY 07/11/20 07/11/20 Unknown History aspirin 81 mg PO DAILY 07/11/20 07/11/20 07/10/20 History bumetanide 4 mg PO DAILY 07/11/20 07/11/20 07/09/20 History doxycycline hyclate 100 mg PO BID 07/11/20 07/11/20 07/10/20 History uynoqxnlfbz-ptdnoblyj-gxggczhp 1 inh INHALATION DAILY 07/11/20 07/11/20 Unknown History [Trelegy Ellipta] metoprolol succinate 25 mg PO DAILY 07/11/20 07/11/20 07/10/20 History multivitamin [Multiple Vitamins] 1 tab PO DAILY 07/11/20 07/11/20 Unknown History sildenafil (pulm.hypertension) 20 mg PO PRN 07/11/20 07/11/20 Unknown History testosterone cypionate 200 mg IM Q7D 07/11/20 07/11/20 07/06/20 History tiotropium bromide [Spiriva 2 inh INHALATION DAILY 07/11/20 07/11/20 Unknown History Respimat] zolpidem 12.5 mg PO BEDTIME 07/11/20 07/11/20 Unknown History Allergies Allergy/AdvReac Type Severity Reaction Status Date / Time niacin Allergy Unknown Unknown Verified 07/11/20 14:26 PFSH Acute PFSH: Medical History (Updated 07/11/20 @ 15:34 by Kevin Thomas MD) Atrial fibrillation Cholelithiasis Chronic kidney disease, stage III (moderate) COPD (chronic obstructive pulmonary disease) Diabetes History of diverticulitis Lung tumor Non-small cell lung cancer Surgical History H/O ventral hernia repair History of cataract extraction History of umbilical hernia repair S/P bronchoscopy S/P tonsillectomy and adenoidectomy Status post right inguinal hernia repair 12/25/2019: Laparoscopic Status post tonsillectomy Family History Mother Liver failure Father Liver failure Stroke Denies family history of Anesthesia complication Bleeding disorder Social History (Updated 07/11/20 @ 15:31 by Kevin Thomas MD) Smoking and tobacco status: current every day smoker Alcohol intake: current Alcohol intake frequency: holidays/special occasions only Vitals/I&O/Wt Last Vital Signs Temp 98.8 F 07/11/20 13:38 Pulse 94 07/11/20 13:38 Resp 18 07/11/20 13:38 BP 121/78 07/11/20 13:38 Pulse Ox 95 07/11/20 13:38 Weight last 48 hrs Weight 77.564 kg Physical Exam Narrative: EXAM NARRATIVE: General exam no apparent distress HEENT: Pupils equally round. Oropharynx clear. Neck is supple no lymphadenopathy or thyromegaly Cardiovascular irregular, irregular without murmur Lungs diminished breath sounds bilaterally but no wheezes or crackles Abdomen is soft nontender with positive bowel sounds. No obvious organomegaly was deferred Extremities 1+ edema right, 2+ left. Cap refill brisk Skin no rash Neuro no focal deficits Data : 07/11/20 13:58 07/11/20 13:58 Other data: EKG demonstrates atrial fibrillation, right bundle branch block, right axis deviation, Q waves inferiorly. This is not much changed from his previous EKG. CT scan demonstrates smaller left suprahilar mass, large left pulmonary artery embolism, right upper lobe and right lower lobe smaller embolisms Initial troponin 39 BNP 2526 A&P Assessment and plan (1) Pulmonary embolism: Large volume left pulmonary artery embolism with small embolism to right upper and right lower lobe. He refused ICU placement. He reports he is allow natural . Initiate heparin drip Check echocardiogram Depending upon stability of the patient, anticipate conversion to apixaban in 48 to 72 hours Status: Acute (2) Acute respiratory failure: Secondary to acute pulmonary embolism superimposed on chronic COPD Oxygen as needed Status: Acute Additional A&P Information COPD, no evidence of exacerbation. Currently on doxycycline from his oracle technical architect for concern of bronchitis which I will continue. DuoNeb as needed. Continue his chronic steroid History of non-small cell carcinoma of the left lung, status post radiation with last treatment in May 2019 Type 2 diabetes. Sliding scale insulin Atrial fibrillation, flutter rate controlled currently with metoprolol Chronic lower extremity edema. On Bumex. Hold until reevaluation of renal function as he received dye load with CTA Tobacco dependency. He has no interest in quitting Allow natural Heparin drip will suffice for DVT prophylaxis Attestations Medical Necessity Statement*: Will need greater than 2 midnight stay for treatment of pulmonary embolism Time Spent in Patient Care: Greater than 35 minutes Coding Level of Care Code Acute Workers Compensation Examiner for Caryn Vines Diagnoses Pulmonary embolism I26.99 Acute respiratory failure J96.00
--- NOTE | 2020-07-11 15:35 | ECG_ITS ---
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 Measurements Intervals [place] Rate: 70 P: OR: -1 QRS: -87 QRSD: 155 T: 39 QT: 385 QTc: 416 Interpretive Statements ATRIAL FIBRILLATION WITH ABERRANT CONDUCTION OR VENTRICULAR PREMATURE COMPLEXES RIGHT BUNDLE BRANCH BLOCK [120+ ms QRS DURATION, UPRIGHT V1, 40+ ms S IN I/aVL/V4/V5/V6] INFERIOR MYOCARDIAL INFARCTION [40+ ms Q WAVE AND/OR ST/T ABNORMALITY IN II/aVF], OF INDETERMINATE AGE Compared to ECG 07/11/2020 15:53:35 Right-axis deviation no longer present Myocardial infarct finding still present Electronically Signed On 07-11-2020 19:57:49 CDT by Samara White M.D. [id number]
[2020-07-11] MEDS: heparin drip 25,000 UNIT/500 ML PREMIX 21.7 UNIT IV (15:49)
[2020-07-11] MEDS: heparin 5,000 unit/mL INJ 1 mL IV (16:04)
[2020-07-11 17:14] LABS: Troponin 5 2HR 36.86 ng/L (0-15)
[2020-07-11 17:23] LABS: Troponin 5 2HR Delta -2.14 ABS# (0-10)
[2020-07-11 18:17] LABS: Glucose Point of Care 129 mg/dL (70-110)
[2020-07-11] MEDS: doxycycline 100 mg Tablet PO (18:43)
--- NOTE | 2020-07-11 19:35 | ECG_ITS ---
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 Measurements Intervals [place] Rate: 81 P: OK: -1 QRS: 269 QRSD: 169 T: 22 QT: 412 QTc: 479 Interpretive Statements ATRIAL FIBRILLATION WITH ABERRANT CONDUCTION OR VENTRICULAR PREMATURE COMPLEXES RIGHT AXIS DEVIATION [QRS AXIS > 100] RIGHT BUNDLE BRANCH BLOCK [120+ ms QRS DURATION, UPRIGHT V1, 40+ ms S IN I/aVL/V4/V5/V6] INFERIOR MYOCARDIAL INFARCTION , OF INDETERMINATE AGE [40+ ms Q WAVE AND/OR ST/T ABNORMALITY IN II/aVF] ANTEROSEPTAL MYOCARDIAL INFARCTION , OF INDETERMINATE AGE [40+ ms Q WAVE IN V1-V4] Compared to ECG 07/11/2020 14:27:52 No significant changes Electronically Signed On 07-11-2020 19:56:26 CDT by Samara White M.D. [id number]
[2020-07-11 20:26] LABS: Troponin 5 6HR 36.91 ng/L (0-15)
[2020-07-11] MEDS: oxymetazoline 0.05% Nasal Spray 15 mL 2 SPRAY NOSTRIL-B (20:37)
[2020-07-11] MEDS: insulin glargine 100 units/1 mL 5 UNIT SUBCUT (20:37)
[2020-07-11 20:56] LABS: Troponin 5 6HR Delta -2.09 ng/L (0-12)
[2020-07-11 22:00] LABS: Partial Thromboplastin Time 147.6 SECONDS (23.9-36.7)
--- NOTE | 2020-07-11 23:17 | PC.NURSE ---
pt was requesting neb as they work best for him at night . Proceeded to get the order from inhaler to nebs changed, still waiting on order. Pt very upset when i attempted to marco antonio shea from [facility] to put a label on it and place in the bin, per respiratory. Pt stated while throwing oxy tubing and thrashing with discontent im 79 damn years old, when am i going to be treated like an adult. I played $150 for that inhaler and the hell you are not going to take it! pt then put the inhaler under the covers and told me he no longer had it and his must have taken it home with her. Dr Tello notified of inhaler at BS.
--- NOTE | 2020-07-12 01:14 | ECG_ITS ---
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 Measurements Intervals [place] Rate: 75 P: MT: -1 QRS: 140 QRSD: 166 T: 23 QT: 408 QTc: 456 Interpretive Statements ATRIAL FIBRILLATION RIGHT BUNDLE BRANCH BLOCK [120+ ms QRS DURATION, UPRIGHT V1, 40+ ms S IN I/aVL/V4/V5/V6] ANTEROLATERAL MYOCARDIAL INFARCTION [40+ ms Q WAVE IN I/aVL/V3-V6], OF INDETERMINATE AGE Compared to ECG 07/11/2020 19:39:36 Ventricular premature complex(es) no longer present Aberrant conduction of supraventricular beat(s) no longer present Myocardial infarct finding still present Electronically Signed On 07-13-2020 9:35:16 CDT by Rosa Maria Kennedy M.D. [id number]
[2020-07-12 04:48] LABS: Basophils % 0.5 %; Eosinophils # 0.1 10^3/uL (0.0-0.8); Eosinophils % 1.6 %; Hematocrit 49.6 % (42.0-52.0); Hemoglobin 16.2 g/dL (11.7-16.6); Lymphocytes # 0.8 10^3/uL (0.8-4.8); Lymphocytes % 10.2 %; Mean Corpuscular HGB Conc 32.7 g/dL (30.0-36.0); Mean Corpuscular Hemoglobin 32.2 pg (28.0-34.0); Mean Corpuscular Volume 98.6 fL (80-94); Mean Platelet Volume 10.9 fL (7.4-10.4); Monocytes # 0.8 10^3/uL (0.2-0.9); Monocytes % 10.6 %; Neutrophils # 5.74 10^3/uL (1.8-7.7); Neutrophils % 76.3 %; Nucleated Red Blood Cells % 0 %; Platelet Count 145 10^3/cmm (130-400); Red Blood Count 5.03 10^6/uL (4.1-5.3); Red Cell Distribution Width 14.1 % (12.1-15.1); White Blood Count 7.5 10^3/uL (4.0-10.0)
[2020-07-12 05:03] LABS: Partial Thromboplastin Time 63.6 SECONDS (23.9-36.7)
[2020-07-12 05:23] LABS: Anion Gap 11.9 (5-19); Blood Urea Nitrogen 14 mg/dL (8-23); Calcium 8.9 mg/dL (8.5-10.5); Carbon Dioxide 22 mmol/L (22-29); Chloride 105 mmol/L (98-107); Glucose 117 mg/dL (65-115); Osmolality Calculated 282 mOsm/kg (285-295); Potassium 3.9 mmol/L (3.5-5.1); Sodium 135 mmol/L (136-145)
[2020-07-12 06:53] LABS: Glucose Point of Care 98 mg/dL (70-110)
[2020-07-12 07:58] VITALS: BP 132/81; PULSE 88; RESP 18; TEMP 36.7; O2SAT 95
[2020-07-12 08:31] VITALS: PULSE 82; RESP 16; O2SAT 96
[2020-07-12 08:32] VITALS: PULSE 85
--- NOTE | 2020-07-12 09:07 | P.DS_ITS ---
Discharge Providers Date of Admission: 07/11/20 15:23 Date of Discharge: July 12, 2020 Attending Provider at Admission: Kevin Thomas MD Attending Provider at Discharge: Kevin Thomas MD Primary Care Provider: Feroz Ramos DO Diagnoses at Discharge Discharge Diagnosis (1) Pulmonary embolism: Status: Acute Problem details: Large left main pulmonary artery embolism, smaller to right upper and right lower lobe. (2) Acute respiratory failure: Status: Acute Problem details: Improved, on 2 L of oxygen currently. Reason for Visit Reason for Visit: SOB Hospital Course Hospital Course: Aaron is an 80-year-old white male who presented to the hospital with gradually increasing shortness of breath over the last 7 to 10 days. 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 A routine CT screening exam of his chest for follow-up of his non-small cell lung cancer was performed, which demonstrated a large left main pulmonary artery embolism, and smaller ones involving the right upper and right lower lobes. He required approximately 3 L of oxygen in the ER, and previously used oxygen as needed. He was admitted to the hospital, and placed on a heparin drip. An echocardiogram was obtained, but not read at the time of his discharge. The morning after discharge, the patient reported he was going to go home. He indicated he would do this no matter what, whether he was discharged or whether he went AGAINST MEDICAL ADVICE. I discussed with him that the medical treatment preferred would be continuation of heparin for approximately 72 hours with conversion to Eliquis secondary to his large pulmonary embolism on the left that narrowed his pulmonary artery by 70%. I discussed the and/or permanent disability should he not get continued treatment. He reported that he was DNR, and that he wished to go home for further continued treatment at home with oral anticoagulant. He understood risks and benefits as presented to him, and this was clarified with his . I also informed his oncologist regarding his decision. Therefore he was converted to Eliquis, and will be discharged home today. He will follow-up with his primary care provider in 3 to 5 days. He will be discharged on 2 L of oxygen, which she already has at home. He will need a CBC and BMP on follow-up. Physical Exam Narrative: EXAM NARRATIVE: General exam no apparent distress Cardiovascular regular in rhythm without murmur Lungs clear Abdomen is soft with positive bowel sounds Extremities no cyanosis clubbing. Edema left greater than right unchanged from yesterday. Discharge Data Data Completed and Pending: Completed Studies During Hospitalization Category Date Time Status XR chest 1V maria guadalupe ble [id number] Stat Exams 07/11/20 13:35 Completed Pending at discharge Category Date Time Status PTT [Partial Thro mboplastin Time] T imed Lab 07/12/20 10:20 Ordered CV echo complete* [id number] Routine Ultrasound 07/12/20 17:02 Taken Labs from last 24 hours 07/12/20 07/12/20 07/12/20 06:39 04:25 04:25 WBC 7.5 RBC 5.03 Hgb 16.2 Hct 49.6 MCV 98.6 H MCH 32.2 MCHC 32.7 RDW 14.1 Plt Count 145 MPV 10.9 H Neut % (Auto) 76.3 Lymph % (Auto) 10.2 [place] % (Auto) 10.6 Eos % (Auto) 1.6 Baso % (Auto) 0.5 Neut # (Auto) 5.74 Lymph # (Auto) 0.8 [place] # (Auto) 0.8 Eos # (Auto) 0.1 Baso # (Auto) 0.0 Nucleated RBC % (a uto) 0 Nucleated RBCs # 0.0 PT INR APTT Sodium 135 L Potassium 3.9 Chloride 105 Carbon Dioxide 22 Anion Gap 11.9 BUN 14 Creatinine 2.0 H GFR Calculation Not Reportable Glucose 117 H POC Glucose 98 Calculated Osmolal ity 282 L Lactic Acid Calcium 8.9 Total Bilirubin AST ALT Alkaline Phosphata se Troponin T Baselin e Troponin T 120 Min [place] Delta Troponin T Troponin T Hi Sens 6Hr Troponin T Hi Sens 6Hr Delta NT-Pro-B Natriuret Pep Total Protein Albumin Globulin 07/12/20 07/11/20 07/11/20 04:25 21:33 19:41 WBC RBC Hgb Hct MCV MCH MCHC RDW Plt Count MPV Neut % (Auto) Lymph % (Auto) [place] % (Auto) Eos % (Auto) Baso % (Auto) Neut # (Auto) Lymph # (Auto) [place] # (Auto) Eos # (Auto) Baso # (Auto) Nucleated RBC % (a uto) Nucleated RBCs # PT INR APTT 63.6 H D 147.6 H Sodium Potassium Chloride Carbon Dioxide Anion Gap BUN Creatinine GFR Calculation Glucose POC Glucose Calculated Osmolal ity Lactic Acid Calcium Total Bilirubin AST ALT Alkaline Phosphata se Troponin T Baselin e Troponin T 120 Min [place] Delta Troponin T Troponin T Hi Sens 6Hr 36.91 H Troponin T Hi Sens 6Hr Delta -2.09 L NT-Pro-B Natriuret Pep Total Protein Albumin Globulin 07/11/20 07/11/20 07/11/20 18:01 16:21 13:58 WBC RBC Hgb Hct MCV MCH MCHC RDW Plt Count MPV Neut % (Auto) Lymph % (Auto) [place] % (Auto) Eos % (Auto) Baso % (Auto) Neut # (Auto) Lymph # (Auto) [place] # (Auto) Eos # (Auto) Baso # (Auto) Nucleated RBC % (a uto) Nucleated RBCs # PT INR APTT Sodium Potassium Chloride Carbon Dioxide Anion Gap BUN Creatinine GFR Calculation Glucose POC Glucose 129 Calculated Osmolal ity Lactic Acid Calcium Total Bilirubin AST ALT Alkaline Phosphata se Troponin T Baselin e 39 H Troponin T 120 Min [place] 36.86 H Delta Troponin T -2.14 L Troponin T Hi Sens 6Hr Troponin T Hi Sens 6Hr Delta NT-Pro-B Natriuret Pep Total Protein Albumin Globulin 07/11/20 07/11/20 07/11/20 13:58 13:58 13:58 WBC RBC Hgb Hct MCV MCH MCHC RDW Plt Count MPV Neut % (Auto) Lymph % (Auto) [place] % (Auto) Eos % (Auto) Baso % (Auto) Neut # (Auto) Lymph # (Auto) [place] # (Auto) Eos # (Auto) Baso # (Auto) Nucleated RBC % (a uto) Nucleated RBCs # PT 13.70 INR 1.02 APTT Sodium 135 L Potassium 4.3 Chloride 98 Carbon Dioxide 25 Anion Gap 16.3 BUN 14 Creatinine 1.8 H GFR Calculation Not Reportable Glucose 134 H POC Glucose Calculated Osmolal ity 282 L Lactic Acid 2.0 Calcium 9.7 Total Bilirubin 1.1 AST 21 ALT 24 Alkaline Phosphata se 82 Troponin T Baselin e Troponin T 120 Min [place] Delta Troponin T Troponin T Hi Sens 6Hr Troponin T Hi Sens 6Hr Delta NT-Pro-B Natriuret Pep 2526 H Total Protein 6.9 Albumin 3.7 Globulin 3.2 07/11/20 13:58 WBC 11.1 H RBC 5.65 H Hgb 18.1 H Hct 55.8 H MCV 98.8 H MCH 32.0 MCHC 32.4 RDW 14.2 Plt Count 183 MPV 10.5 H Neut % (Auto) 83.2 Lymph % (Auto) 7.0 [place] % (Auto) 7.8 Eos % (Auto) 0.7 Baso % (Auto) 0.6 Neut # (Auto) 9.22 H Lymph # (Auto) 0.8 [place] # (Auto) 0.9 Eos # (Auto) 0.1 Baso # (Auto) 0.1 Nucleated RBC % (a uto) 0 Nucleated RBCs # 0.0 PT INR APTT Sodium Potassium Chloride Carbon Dioxide Anion Gap BUN Creatinine GFR Calculation Glucose POC Glucose Calculated Osmolal ity Lactic Acid Calcium Total Bilirubin AST ALT Alkaline Phosphata se Troponin T Baselin e Troponin T 120 Min [place] Delta Troponin T Troponin T Hi Sens 6Hr Troponin T Hi Sens 6Hr Delta NT-Pro-B Natriuret Pep Total Protein Albumin Globulin Vitals: Last Vital Signs Temp 98.0 F 07/12/20 07:58 Pulse 85 07/12/20 08:32 Resp 16 07/12/20 08:31 BP 132/81 07/12/20 07:58 Pulse Ox 96 07/12/20 08:31 Discharge Plan Discharge Patient Disposition: Home Condition: Fair Prescriptions: aGrcia Hollis DVT-PE Treat 30D Start 5 mg (74 tabs) tablets,dose pack See Rx Instructions .ROUTE .COMPLEX Qty: 74 RF: 0 Continued potassium chloride 10 mEq capsule, extended release 20 meq PO DAILY RF: 0 prednisone 5 mg tablet 2.5 mg PO DAILY RF: 0 montelukast [Singulair] 10 mg tablet 10 mg PO DAILY RF: 0 zolpidem 10 mg tablet 10 mg PO BEDTIME RF: 0 albuterol sulfate [ProAir HFA] 90 mcg/actuation HFA aerosol inhaler 1 - 2 puff INHALATION Q3H PRN (Reason: Shortness Of Breath) RF: 0 nitroglycerin [Nitrostat] 0.4 mg tablet, sublingual 0.4 mg SUBLINGUAL Q5MIN PRN (Reason: Chest Pain) RF: 0 Lantus U-100 Insulin 100 unit/mL Solution 5 unit SUBCUT BEDTIME RF: 0 Multiple Vitamins Tablet 1 tab PO DAILY RF: 0 doxycycline hyclate 100 mg capsule 100 mg PO BID RF: 0 bumetanide 2 mg tablet 4 mg PO DAILY RF: 0 aspirin 81 mg tablet,delayed release (DR/EC) 81 mg PO DAILY RF: 0 zolpidem 12.5 mg tablet,ext release multiphase 12.5 mg PO BEDTIME RF: 0 Spiriva Respimat 2.5 mcg/actuation mist 2 inh INHALATION DAILY RF: 0 Trelegy Ellipta 100-62.5-25 mcg Blister With Device 1 inh INHALATION DAILY RF: 0 Robitussin Dm See Rx Instructions .ROUTE .COMPLEX RF: 0 Vitamin B-1 1 tab PO DAILY RF: 0 Vitamin B-12 1 tab PO DAILY RF: 0 Vitamin B-6 1 tab PO DAILY RF: 0 Vitamin D3 1 tab PO DAILY RF: 0 Neurontin 100 mg capsule 100 mg PO TID PRN (Reason: unknown) RF: 0 metoprolol succinate 25 mg tablet extended release 24 hr 25 mg PO DAILY RF: 0 Discontinued testosterone cypionate 200 mg/mL oil 200 mg IM Q7D RF: 0 sildenafil (pulm.hypertension) 20 mg tablet 20 mg PO PRN RF: 0 Discharge Orders: Discharge Order (Routine); Ordered 07/12/20 Ordered By: Kevin Thomas Referrals: Feroz Ramos DO [Primary Care Provider] - 4-7 days Discharge Diet: Cardiac and Diabetic Discharge Activity: Limit activity as instructed Activity Restrictions/Additional Instructions: Limit activity for the next 3 days. Take all medicines as prescribed. Return for any concerns. Keep oxygen at 2 L per nasal cannula, this is what you qualify for on the home oxygen evaluation. Note the Eliquis should be administered prior to discharge from the hospital, and should be 10 mg twice a day for 7 days then 5 mg twice daily. Follow-up 3 to 5 days with your primary care provider. CBC and BMP 1 follow-up with your primary care provider. 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
[2020-07-12 10:02] VITALS: PULSE 85
[2020-07-12] MEDS: apixaban 5 mg Tablet 10 MG PO (10:11)
[2020-07-12] MEDS: multivitamin therapeutic Tablet 1 TAB PO (10:14)
[2020-07-12] MEDS: montelukast sodium 10 mg Tablet PO (10:14)
[2020-07-12] MEDS: predniSONE 5 mg Tablet 2.5 MG PO (10:14)
[2020-07-12 10:58] LABS: Glucose Point of Care 158 mg/dL (70-110)
[2020-07-12 11:01] VITALS: BP 123/73; PULSE 80; RESP 18; TEMP 36.6; O2SAT 96
--- NOTE | 2020-07-12 17:02 | USCV_ITS ---
Aaron Lloyd Age: 80 Gender: M : 1940 Exam Date: 07/12/2020 06:30 Ordering Phys: Deondre Fitzpatrick MD Technologist: Negra Harry Exam Location: [facility] [place] Indication: PE BP: 117 / 79 HR: 86 Rhythm: Sinus Technical Quality: Adequate MEASUREMENTS (Male / Female) Normal Values 2D ECHO LV Diastolic Diameter PLAX 3.9 cm 4.2 - 5.9 / 3.9 - 5.3 cm LV Systolic Diameter PLAX 2.7 cm LV Chamber Size 3.4 cm IVS Diastolic Thickness 1.1 cm 0.6 - 1.0 / 0.6 - 0.9 cm IVS Systolic Thickness 1.5 cm LVPW Diastolic Thickness 1.9 cm 0.6 - 1.0 / 0.6 - 0.9 cm LVPW Systolic Thickness 2.5 cm RV Chamber Size 2.9 cm LVOT Diameter 2.0 cm LV Ejection Fraction 2D Teich 58.6 % LA Diameter 4.6 cm LA Width 3.3 cm LA Height 4.9 cm RA Width 2.8 cm RA Height 5.0 cm Aorta at Sinotubular Diameter 3.3 cm M-MODE LV Diastolic Diameter MM 5.4 cm 4.2 - 5.9 / 3.9 - 5.3 cm LV Systolic Diameter MM 3.8 cm LV Ejection Fraction MM Teich 56.7 % IVS Diastolic Thickness MM 0.7 cm 0.6 - 1.0 / 0.6 - 0.9 cm IVS Systolic Thickness MM 1.1 cm LVPW Diastolic Thickness MM 1.2 cm 0.6 - 1.0 / 0.6 - 0.9 cm LVPW Systolic Thickness MM 1.3 cm Aortic Annulus Diameter 2.6 cm LA Ao Ratio MM 1.7 MV E Point Septal Separation 0.4 cm DOPPLER AV Peak Velocity 111.0 cm/s LVOT Peak Velocity 70.0 cm/s AV Area Cont Eq vti 1.7 cm squared AV Area Cont Eq pk 2.1 cm squared MV Area PHT 5.0 cm squared Mitral E to A Ratio 3.1 MV E' Velocity 20.0 cm/s Mitral E to MV E' Ratio 5.1 Mitral E to LV E' Lateral Ratio 4.6 Mitral E to LV E' Septal Ratio 5.7 TR Peak Velocity 257.0 cm/s TR Peak Gradient 26.5 mmHg TV Peak E Velocity 67.0 cm/s Right Atrial Pressure 3.0 mmHg Pulmonary Artery Systolic Pressu 29.4 mmHg PV Peak Velocity 74.0 cm/s RV Acceleration Time 0.1 s RV Ejection Time 0.2 s RV AcT/ET 0.3 FINDINGS Left Ventricle Normal left ventricular size and wall thickness. LV systolic function is mildly reduced with EF of 40-45%. Mild global hypokinesis is noted.. Normal left ventricular wall thickness. Diastolic function is indeterminate because of atrial fibrillation. Right Ventricle The right ventricle is mildly dilated. Possibly normal function. Right Atrium The right atrium is normal in size. Left Atrium The left atrium is normal in size. Mitral Valve Structurally normal mitral valve without significant stenosis or prolapse. There is no mitral regurgitation. Aortic Valve Structurally normal aortic valve without significant sclerosis or stenosis. There is no aortic regurgitation. Tricuspid Valve Structurally normal tricuspid valve without significant stenosis. Mild TR is noted. RVSP is 25 to 30 mmHg. Pulmonic Valve Structurally normal pulmonic valve without significant stenosis. There is no pulmonic regurgitation. Pericardium Normal pericardium without effusion. Aorta Normal ascending aorta dimension. CONCLUSIONS LV systolic function is mildly reduced with EF of 40 to 45%. Diastolic function is indeterminate because of atrial fibrillation. RV is mildly dilated. RVSP is normal. Compared to echo from 2016, LV systolic function is mildly reduced. Rashi Yo MD (Electronically Signed) Final Date: 12 July 2020 16:19 S
--- NOTE | 2020-07-15 07:26 | PC.RESP ---
Pulmonary Rehab information sent to patient.
--- NOTE | 2020-07-15 07:27 | PC.RESP ---
Smoking Cessation and a schedule of classes sent to patient.
== END 2020-07-12 10:30 | disposition home or self-care (01) | DRG 175 ==
LOC: ER 15:00 → MEDSURG 16:36
PROVIDERS: Emergency Medicine; Internal Medicine; Admitting Provider Internal Medicine; PCP Internal Medicine; Visit Provider Internal Medicine
DX: I26.99 Other pulmonary embolism without acute cor pulmonale (principal); J96.00 Acute respiratory failure, unspecified whether with hypoxia or hypercapnia; Z85.118 Personal history of other malignant neoplasm of bronchus and lung; Z99.81 Dependence on supplemental oxygen; R60.0 Localized edema; I48.91 Unspecified atrial fibrillation; E11.22 Type 2 diabetes mellitus with diabetic chronic kidney disease; I12.9 Hypertensive chronic kidney disease with stage 1 through stage 4 chronic kidney disease, or unspecified chronic kidney disease; N18.3 Chronic kidney disease, stage 3 (moderate); J44.9 Chronic obstructive pulmonary disease, unspecified; F17.210 Nicotine dependence, cigarettes, uncomplicated; Z66 Do not resuscitate; Z92.3 Personal history of irradiation; Z79.51 Long term (current) use of inhaled steroids; Z79.82 Long term (current) use of aspirin; Z79.4 Long term (current) use of insulin
CPT/HCPCS: 12345; 36415; 36416; 71045; 71260; 80048; 80053; 82565; 82962; 83605; 83880; 84484; 84520; 85025; 85610; 85730; 93005; 93306; 94640; 96372; 99282; J1644; J1815; J7040; J7512; J7611; Q9967